=== PATIENT | female | born 1930 | race American Indian/Alaskan Native ===

== ENCOUNTER 2018-12-30 12:15 | Inpatient (IN) | payer MEDICARE, BC, OTHER ==
--- NOTE | 2018-12-30 12:55 | EDM.PDOC ---
"ED HPI GENERAL MEDICAL PROBLEM - General Chief Complaint: Respiratory Problem Stated Complaint: CAN'T STOP COUGHING/HARD TO BREATHE Time Seen by Provider: 12/30/18 12:54 Source of Information: Reports: Patient, Family, Old Records, RN, RN Notes Reviewed History Limitations: Reports: No Limitations - History of Present Illness INITIAL COMMENTS - FREE TEXT/NARRATIVE: Pt presents to ER from home with c/o progressively worsening cough and shortness of breath. Pt was seen in clinic 1 week ago and treated with Z-Ulysses, Prednisone, DuoNeb, and Tessalon Perles but did not improve. She reports extreme shortness of breath just walking across a room in her house. She has never been supplemental oxygen dependent. Denies chest pain, edema, N/V, or abdominal pain. 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, Other Medication(s) - Related Data Allergies Allergy/AdvReac Type Severity Reaction Status Date / Time cephalexin [Cephalexin] Allergy Itching Verified 07/10/18 13:12 pantoprazole Allergy Nausea and Verified 07/10/18 13:12 Vomiting pantoprazole sodium Allergy Nausea and Verified 07/10/18 13:12 [From Protonix] Vomiting terbinafine Allergy Nausea and Verified 07/10/18 13:12 Vomiting Home Meds: Home Meds Cholecalciferol (Vitamin D3) [Vitamin D3] 1 tab PO DAILY 03/29/14 [History] Alendronate [Fosamax] 10 mg PO WEEKLY 12/30/18 [History] Benzonatate 100 mg PO TID 12/30/18 [History] Diclofenac Sodium [Diclofenac Sodium ER] 100 mg PO DAILY 12/30/18 [History] Past Medical History HEENT History: Reports: Impaired Vision Other HEENT History: wears glasses Cardiovascular History: Reports: Other (See Below) Respiratory History: Reports: COPD Gastrointestinal History: Reports: GERD Musculoskeletal History: Reports: Osteoarthritis Other Musculoskeletal History: right siatica problems Social & Family History - Family History Family Medical History: Noncontributory - Tobacco Use Smoking Status *Q: Current Every Day Smoker Tobacco Use Within Last Twelve Months: Cigarettes Years of Tobacco use: 60 Packs/Tins Daily: 0.8 - Caffeine Use Caffeine Use: Reports: Coffee - Recreational Drug Use Recreational Drug Use: No - Living Situation & Occupation Occupation: Retired ED ROS GENERAL - Review of Systems Review Of Systems: ROS reveals no pertinent complaints other than HPI. ED EXAM, GENERAL - Physical Exam Exam: See Below Exam Limited By: No Limitations General Appearance: Alert, No Apparent Distress, Thin Eye Exam: Bilateral Eye: Normal Inspection Nose: Normal Inspection, Normal Mucosa, No Blood Throat/Mouth: Normal Inspection, Normal Lips, Normal Teeth, Normal Gums, Normal Oropharynx, Normal Voice, No Airway Compromise Head: Atraumatic, Normocephalic Neck: Normal Inspection, Supple, Non-Tender, Full Range of Motion Respiratory/Chest: No Respiratory Distress, No Accessory Muscle Use, Decreased Breath Sounds, Crackles, Rhonchi, Wheezing. No: Rales, Stridor Cardiovascular: Regular Rate, Rhythm, No Edema GI/Abdominal: Normal Bowel Sounds, Soft, Non-Tender, No Organomegaly, No Distention, No Abnormal Bruit, No Mass Back Exam: Normal Inspection Extremities: Normal Inspection Neurological: Alert, Oriented, CN II-XII Intact, Normal Cognition, Normal Gait, No Motor/Sensory Deficits Psychiatric: Normal Affect, Normal Mood Skin Exam: Warm, Dry, Intact, Normal Color, No Rash Course - Vital Signs Last Recorded V/S: Last Vital Signs Temp 97.5 F 12/30/18 12:28 Pulse 87 12/30/18 13:20 Resp 20 12/30/18 12:28 BP 147/77 H 12/30/18 12:28 Pulse Ox 95 12/30/18 12:28 - Orders/Labs/Meds Orders: Active Orders 24 hr Category Date Time Status Peripheral IV Care [RC] . DIRECTED Care 12/30/18 13:04 Active RT Aerosol Therapy [RC] ASDIRECTED Care 12/30/18 13:05 Active CULTURE BLOOD [BC] Stat Lab 12/30/18 13:25 Received CULTURE BLOOD [BC] Stat Lab 12/30/18 14:47 Ordered INFLUENZA A+B AG SCREEN [RM] Stat Lab 12/30/18 14:49 Received LACTIC ACID [CHEM] Stat Lab 12/30/18 14:47 Ordered Levofloxacin/Dextrose 5%-Water [Levaquin in D5W 750 MG/ Med 12/30/18 14:47 Active 150 ML] 750 mg Premix Bag 1 bag IV ONETIME Sodium Chloride 0.9% [Saline Flush] Med 12/30/18 13:03 Active 10 ml FLUSH ASDIRECTED PRN Peripheral IV Insertion Adult [OM.PC] Stat Oth 12/30/18 13:03 Ordered Medication Orders Levofloxacin/Dextrose 750 mg/ (Premix) 150 mls @ 100 mls/hr IV ONETIME ONE Stop: 12/30/18 16:16 Sodium Chloride (Saline Flush) 10 ml FLUSH ASDIRECTED PRN PRN Reason: Keep Vein Open Last Admin: 12/30/18 14:28 Dose: 10 ml Labs: Laboratory Tests 12/30/18 12/30/18 Range/Units 13:25 13:25 WBC 9.5 (5.0-10.0) 10^3/uL RBC 4.73 (4.2-5.4) 10^6/uL Hgb 14.9 (12.0-16.0) g/dL Hct 45.2 (37.0-47.0) % MCV 95.6 D (80-100) fL MCH 31.5 (27.0-34.0) pg MCHC 33.0 (33.0-35.0) g/dL Plt Count 192 (150-450) 10^3/uL Neut % (Auto) 71.1 (42.2-75.2) % Lymph % (Auto) 17.3 L (20.5-50.1) % [place] % (Auto) 7.0 (2-8) % Eos % (Auto) 4.3 H (1.0-3.0) % Baso % (Auto) 0.3 (0.0-1.0) % Sodium 135 (135-145) mmol/L Potassium 4.7 (3.6-5.0) mmol/L Chloride 97 L (101-111) mmol/L Carbon Dioxide 27.0 (21.0-31.0) mmol/L Anion Gap 15.7 BUN 21 H (7-18) mg/dL Creatinine 0.6 (0.6-1.3) mg/dL Est Cr Clr Drug Dosing 49.81 mL/min Estimated GFR (MDRD) > 60 BUN/Creatinine Ratio 35.00 Glucose 99 (74-105) mg/dL Calcium 9.3 (8.4-10.2) mg/dl Total Bilirubin 0.8 (0.2-1.0) mg/dL AST 40 (10-42) IU/L ALT 37 (10-60) IU/L Alkaline Phosphatase 52 (42-121) IU/L Total Protein 6.7 (6.7-8.2) g/dl Albumin 3.7 (3.2-5.5) g/dl Globulin 3.0 Albumin/Globulin Ratio 1.23 Meds: Medications Generic Name Dose Route Start Last Admin Trade Name Freq PRN Reason Stop Dose Admin Levofloxacin/Dextrose 750 mg/ 150 mls @ 100 mls/hr 12/30/18 14:47 Premix IV 12/30/18 16:16 ONETIME ONE Sodium Chloride 10 ml 12/30/18 13:03 12/30/18 14:28 Saline Flush FLUSH 10 ml ASDIRECTED PRN Administration Keep Vein Open Discontinued Medications Generic Name Dose Route Start Last Admin Trade Name Freq PRN Reason Stop Dose Admin Albuterol/Ipratropium 3 ml 12/30/18 13:05 12/30/18 13:20 Duoneb 3.0-0.5 Mg/3 Ml NEB 12/30/18 13:06 3 ml ONETIME ONE Administration Methylprednisolone Sodium Succinate 125 mg 12/30/18 13:05 12/30/18 14:28 Solu-Medrol IVPUSH 12/30/18 13:06 125 mg ONETIME ONE Administration - Radiology Interpretation Free Text/Narrative:: [facility] Final Radiology Report Call: [phone] assistance Online chat: [email or web address] Name: ANTONIO WU Age: 88Years F Date: 12/30/2018 SSN: -- : [id number] Study: XR CHEST 2 VIEWS FRONTAL & LAT Requesting Physician: LUZ MARIA PALMER Images: 2 Addl Studies: Provided Clinical History: Contrast: Contrast Medium: Contrast Amount: Contrast Method: Page 1 of 2 EXAM: XR Chest, 2 Views EXAM DATE/TIME: 12/30/2018 1:54 PM CLINICAL HISTORY: 88 years old, female; Signs and symptoms; Cough and shortness of breath and wheezing TECHNIQUE: Imaging protocol: XR of the chest, 2 views. COMPARISON: CR Chest 1V Frontal 07/10/2018 1:30 PM FINDINGS: Lungs: The lungs are hyperinflated, consistent with underlying small airways disease. Nonspecific bibasilar consolidation is present, consistent with atelectasis, edema, or pneumonia. Pleural space: Unremarkable. No pleural effusion. No pneumothorax. Heart/Mediastinum: Unremarkable. No cardiomegaly. Bones/joints: The thoracic spine demonstrates mild degenerative changes at multiple levels. Soft tissues: The vasculature demonstrates diffuse mild atherosclerotic calcification. IMPRESSION: 1. The lungs are hyperinflated, consistent with underlying small airways disease. 2. Nonspecific bibasilar consolidation is present, consistent with atelectasis, edema, or pneumonia. Thank you for allowing us to participate in the care of your patient. Dictated and Authenticated by: Luis Caballero DO KIMMERLY, ALICE | Final Radiology Report CONFIDENTIALITY STATEMENT This report is intended only for use by the referring physician, and only in accordance with law. If you received this in error, call [phone]. Page 2 of 2 12/30/2018 2:12 PM Central Time ([place] & [place]) Departure - Departure Time of Disposition: 14:54 (admitted to Dr. Hogan) Disposition: Admitted As Inpatient 67 Condition: Serious Clinical Impression: Acute exacerbation of chronic obstructive pulmonary disease (COPD) Pneumonia Qualifiers: Pneumonia type: due to unspecified organism Laterality: bilateral Lung location : lower lobe of lung Qualified Code(s): J18.1 - Lobar pneumonia, unspecified organism - Discharge Information *PRESCRIPTION DRUG MONITORING PROGRAM REVIEWED*: No *COPY OF PRESCRIPTION DRUG MONITORING REPORT IN PATIENT LEROY: No Forms: ED Department Discharge - My Orders Last 24 Hours: My Active Orders 12/30/18 13:03 Sodium Chloride 0.9% [Saline Flush] 10 ml FLUSH ASDIRECTED PRN Peripheral IV Insertion Adult [OM.PC] Stat 12/30/18 13:04 Peripheral IV Care [RC] . DIRECTED 12/30/18 13:05 RT Aerosol Therapy [RC] ASDIRECTED 12/30/18 13:25 CULTURE BLOOD [BC] Stat 12/30/18 14:47 CULTURE BLOOD [BC] Stat LACTIC ACID [CHEM] Stat Levofloxacin/Dextrose 5%-Water [Levaquin in D5W 750 MG/150 ML] 750 mg Premix Bag 1 bag IV ONETIME 12/30/18 14:49 INFLUENZA A+B AG SCREEN [RM] Stat - Assessment/Plan Last 24 Hours: My Active Orders 12/30/18 13:03 Sodium Chloride 0.9% [Saline Flush] 10 ml FLUSH ASDIRECTED PRN Peripheral IV Insertion Adult [OM.PC] Stat 12/30/18 13:04 Peripheral IV Care [RC] . DIRECTED 12/30/18 13:05 RT Aerosol Therapy [RC] ASDIRECTED 12/30/18 13:25 CULTURE BLOOD [BC] Stat 12/30/18 14:47 CULTURE BLOOD [BC] Stat LACTIC ACID [CHEM] Stat Levofloxacin/Dextrose 5%-Water [Levaquin in D5W 750 MG/150 ML] 750 mg Premix Bag 1 bag IV ONETIME 12/30/18 14:49 INFLUENZA A+B AG SCREEN [RM] Stat"
[2018-12-30] MEDS ORDERED: Sodium Chloride 0.9% 10 ML Syringe FLUSH PRN ×2 (13:03→16:08)
[2018-12-30] MEDS ORDERED: Albuterol/Ipratropium 3.0-0.5 MG/3 ML Neb Soln NEB ONE (13:05)
[2018-12-30] MEDS ORDERED: methylPREDNISolone Sodium Succinate 125 MG/2 ML SDV IVPUSH ONE (13:05)
[2018-12-30 14:00] LABS: ANION GAP 15.7; CHLORIDE,CL 97 mmol/L (101-111); SODIUM,NA 135 mmol/L (135-145)
[2018-12-30] MEDS ORDERED: Levofloxacin/Dextrose 5%-Water 750 MG in Premix Bag 1 BAG IV ONE (14:47)
[2018-12-30] MEDS ORDERED: Nicotine 14 MG/24 Hr Patch TRDERM SCH (16:00)
[2018-12-30] MEDS ORDERED: Albuterol 0.083% 2.5 MG/3 ML Neb Soln NEB PRN (16:10)
--- NOTE | 2018-12-30 16:44 | PCM.HP ---
H&P History of Present Illness - General Date of Service: 12/30/18 Admit Problem/Dx: Admission Diagnosis/Problem Admission Diagnosis/Problem Chronic obstructive pulmonary disease Source of Information: Patient, Family History Limitations: Reports: No Limitations - History of Present Illness Initial Comments - Free Text/Narative: 88 yo F with PMH of cigarette smoking, chronic back pain, osteoporosis who presents with SOB, cough and weakness. Symptoms started about 10 days ago. Cough is non-productive. SOB is worse with exertion. Symptoms have progressively worsened Varina very weak today and hence came to the ED No fever, no chest pain, no abd pain Smoker, for > 70 years. No formal diagnosis of COPD, no pulmonology follow up; but has an albuterol inhaler Hx of contact with great-grand children and some had colds. Symptoms gradually worsened. Was seen at clinic and given some meds last week Friday without relief of symptoms. In the ED, had some neb treatments and levaquin - Related Data Allergies/Adverse Reactions: Allergies Allergy/AdvReac Type Severity Reaction Status Date / Time cephalexin [Cephalexin] Allergy Itching Verified 12/30/18 15:39 pantoprazole Allergy Nausea and Verified 12/30/18 15:39 Vomiting pantoprazole sodium Allergy Nausea and Verified 12/30/18 15:39 [From Protonix] Vomiting terbinafine Allergy Nausea and Verified 12/30/18 15:39 Vomiting Home Medications: Home Meds Cholecalciferol (Vitamin D3) [Vitamin D3] 1,000 units PO DAILY 03/29/14 [History ] Alendronate [Fosamax] 10 mg PO WEEKLY 12/30/18 [History] Benzonatate 100 mg PO TID 12/30/18 [History] Diclofenac Sodium [Diclofenac Sodium ER] 100 mg PO DAILY 12/30/18 [History] Past Medical History HEENT History: Reports: Impaired Vision Other HEENT History: wears glasses Cardiovascular History: Reports: None Respiratory History: Reports: COPD Gastrointestinal History: Reports: GERD Genitourinary History: Reports: None 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 Musculoskeletal History: Reports: Osteoarthritis Other Musculoskeletal History: right siatica problems - Infectious Disease History Infectious Disease History: Reports: None - Past Surgical History HEENT Surgical History: Reports: Cataract Surgery Cardiovascular Surgical History: Reports: None Respiratory Surgical History: Reports: None GI Surgical History: Reports: None Female Surgical History: Reports: None Musculoskeletal Surgical History: Reports: None Social & Family History - Family History Family Medical History: Noncontributory - Tobacco Use Smoking Status *Q: Current Every Day Smoker Years of Tobacco use: 69 Packs/Tins Daily: 0.5 Second Hand Smoke Exposure: No - Caffeine Use Caffeine Use: Reports: Coffee - Recreational Drug Use Recreational Drug Use: No - Living Situation & Occupation Occupation: Retired H&P Review of Systems - Review of Systems: Review Of Systems: ROS reveals no pertinent complaints other than HPI. General: Reports: Weakness. Denies: Fever HEENT: Reports: No Symptoms Pulmonary: Reports: Shortness of Breath, Cough Cardiovascular: Reports: No Symptoms Gastrointestinal: Reports: No Symptoms Genitourinary: Reports: No Symptoms Musculoskeletal: Reports: No Symptoms Skin: Reports: No Symptoms Neurological: Reports: No Symptoms Exam - Exam Exam: See Below - Vital Signs Vital Signs: Last Vital Signs Temp 37.1 C 12/30/18 15:15 Pulse 73 12/30/18 15:15 Resp 22 H 12/30/18 15:15 BP 146/78 H 12/30/18 15:15 Pulse Ox 97 12/30/18 15:15 Weight: 47.763 kg - Exam General: Alert, Oriented HEENT: Conjunctiva Clear Neck: Supple, Trachea Midline Lungs: Clear to Auscultation Cardiovascular: Regular Rate, Regular Rhythm GI/Abdominal Exam: Normal Bowel Sounds, Soft, Non-Tender Neuro Extensive - Mental Status: Alert, Oriented x3, Normal Mood/Affect, Normal Cognition - Patient Data Lab Results Last 24 hrs: Laboratory Results - last 24 hr 12/30/18 12/30/18 12/30/18 Range/Units 13:25 13:25 15:12 WBC 9.5 (5.0-10.0) 10^3/uL RBC 4.73 (4.2-5.4) 10^6/uL Hgb 14.9 (12.0-16.0) g/dL Hct 45.2 (37.0-47.0) % MCV 95.6 D (80-100) fL MCH 31.5 (27.0-34.0) pg MCHC 33.0 (33.0-35.0) g/dL Plt Count 192 (150-450) 10^3/uL Neut % (Auto) 71.1 (42.2-75.2) % Lymph % (Auto) 17.3 L (20.5-50.1) % [place] % (Auto) 7.0 (2-8) % Eos % (Auto) 4.3 H (1.0-3.0) % Baso % (Auto) 0.3 (0.0-1.0) % Sodium 135 (135-145) mmol/L Potassium 4.7 (3.6-5.0) mmol/L Chloride 97 L (101-111) mmol/L Carbon Dioxide 27.0 (21.0-31.0) mmol/L Anion Gap 15.7 BUN 21 H (7-18) mg/dL Creatinine 0.6 (0.6-1.3) mg/dL Est Cr Clr Drug Dosing 49.81 mL/min Estimated GFR (MDRD) > 60 BUN/Creatinine Ratio 35.00 Glucose 99 (74-105) mg/dL Lactic Acid 2.4 H (0.5-2.2) mmol/L Calcium 9.3 (8.4-10.2) mg/dl Total Bilirubin 0.8 (0.2-1.0) mg/dL AST 40 (10-42) IU/L ALT 37 (10-60) IU/L Alkaline Phosphatase 52 (42-121) IU/L Total Protein 6.7 (6.7-8.2) g/dl Albumin 3.7 (3.2-5.5) g/dl Globulin 3.0 Albumin/Globulin Ratio 1.23 Result Diagrams: 12/30/18 13:25 12/30/18 13:25 Willie Results Last 24 hrs: Microbiology 12/30/18 14:49 Influenza Type A Antigen Screen - Final Nasal, Unspecified NEGATIVE INFLUENZA A VIRUS AG REFERENCE RANGE: NEGATIVE Influenza Type B Antigen Screen - Final NEGATIVE INFLUENZA B VIRUS AG REFERENCE RANGE: NEGATIVE Problem List Initiated/Reviewed/Updated: Yes Orders Last 24hrs: Active Orders 24 hr Category Date Time Status Patient Status [ADT] Routine ADT 12/30/18 16:08 Active Ambulate [RC] ASDIRECTED Care 12/30/18 16:08 Active Height and Weight [RC] DAILY Care 12/30/18 16:08 Active Oxygen Therapy [RC] PRN Care 12/30/18 16:08 Active Peripheral IV Care [RC] . DIRECTED Care 12/30/18 16:08 Active RT Aerosol Therapy [RC] ASDIRECTED Care 12/30/18 13:05 Active RT Aerosol Therapy [RC] ASDIRECTED Care 12/30/18 16:10 Active RT Chest Physiotherapy [RC] ASDIRECTED Care 12/30/18 16:12 Active RT Incentive Spirometry [RC] ASDIRECTED Care 12/30/18 16:12 Active Up With Assistance [RC] ASDIRECTED Care 12/30/18 16:08 Active VTE/DVT Education [RC] PER UNIT ROUTINE Care 12/30/18 16:08 Active Vital Signs [RC] Q4H Care 12/30/18 16:08 Active Regular Diet [DIET] Diet 12/30/18 Breakfast Active CULTURE BLOOD [BC] Stat Lab 12/30/18 13:25 Received CULTURE BLOOD [BC] Stat Lab 12/30/18 15:12 Received RESPIRATORY PANEL Routine Lab 12/30/18 16:18 Ordered Albuterol [Proventil Neb Soln] Med 12/30/18 16:10 Active 2.5 mg NEB Q6HRRT PRN Albuterol/Ipratropium [DuoNeb 3.0-0.5 MG/3 ML] Med 12/30/18 18:00 Active 3 ml NEB Q6HRRT Azithromycin [Zithromax] Med 12/30/18 16:15 Active 500 mg PO DAILY Benzonatate [Tessalon Perles] Med 12/30/18 16:17 Active 100 mg PO TID PRN Cholecalciferol (Vitamin D3) [Vitamin D3] Med 12/31/18 09:00 Active 1,000 units PO DAILY Codeine/guaiFENesin [Robitussin AC] Med 12/30/18 16:36 Ordered 5 ml PO Q6H PRN Enoxaparin [Lovenox] Med 12/30/18 16:30 Active 40 mg SUBCUT DAILY Levofloxacin/Dextrose 5%-Water [Levaquin in D5W 500 MG/ Med 12/31/18 15:00 Active 100 ML] 500 mg Premix Bag 1 bag IV Q24H Mometasone/Formoterol [Dulera 200-5 MCG] Med 12/30/18 18:00 Active 2 puff IH BIDRT Sodium Chloride 0.9% [Saline Flush] Med 12/30/18 13:03 Active 10 ml FLUSH ASDIRECTED PRN Sodium Chloride 0.9% [Saline Flush] Med 12/30/18 16:08 Active 10 ml FLUSH ASDIRECTED PRN predniSONE Med 12/30/18 16:13 Active 50 mg PO WITHBREAKFAST Peripheral IV Insertion Adult [OM.PC] Routine Oth 12/30/18 16:08 Ordered Peripheral IV Insertion Adult [OM.PC] Stat Oth 12/30/18 13:03 Ordered Saline Lock Insert [OM.PC] Routine Oth 12/30/18 16:08 Ordered Resuscitation Status Routine Resus Stat 12/30/18 16:08 Ordered Medication Orders Albuterol (Proventil Neb Soln) 2.5 mg NEB Q6HRRT PRN PRN Reason: Shortness of Breath Albuterol/Ipratropium (Duoneb 3.0-0.5 Mg/3 Ml) 3 ml NEB Q6HRRT JL Azithromycin (Zithromax) 500 mg PO DAILY JL Benzonatate (Tessalon Perles) 100 mg PO TID PRN PRN Reason: Cough Cholecalciferol (Vitamin D3) 1,000 units PO DAILY JL Enoxaparin Sodium (Lovenox) 40 mg SUBCUT DAILY JL Levofloxacin/Dextrose 500 mg/ (Premix) 100 mls @ 100 mls/hr IV Q24H JL Mometasone Furoate/Formoterol Fumar (Dulera 200-5 Mcg) 2 puff IH BIDRT JL Prednisone (Prednisone) 50 mg PO WITHBREAKFAST JL Sodium Chloride (Saline Flush) 10 ml FLUSH ASDIRECTED PRN PRN Reason: Keep Vein Open Last Admin: 12/30/18 14:28 Dose: 10 ml Sodium Chloride (Saline Flush) 10 ml FLUSH ASDIRECTED PRN PRN Reason: Keep Vein Open Assessment/Plan Comment:: #COPD exacerbation #Possible URTI #Possible pneumonia Start COPD protocol: duonebs, dulera (ICS/LABA), prednisone 50 mg daily, prn albuterol Counseled patient to quit smoking Check resp viral panel PRN tessalpenelope matthewsitussin for cough Continue IV levaquin given CXR inflitrates (cephalexin allergy) #Hx of cig smoking Counseled patient to quit smoking and she is agreeable Has nicotine patch allergy #Chronic back pain Tylenol prn I counseled patient to avoid oral NSAIDs Can also try topical NSAIDs, lidocaine patch, capsaicin cream #DVT ppx SC lovenox
[2018-12-30] MEDS: Sodium Chloride 0.9% 10 ML Syringe FLUSH PRN ×2 (16:53→20:15)
[2018-12-30] MEDS: predniSONE 20 MG Tab PO SCH (16:54)
[2018-12-30] MEDS: Enoxaparin 40 MG/0.4 ML Syringe SUBCUT SCH (16:55)
[2018-12-30] MEDS: Azithromycin 250 MG Tab PO SCH (17:03)
[2018-12-30] MEDS: Formoterol/Mometasone 200-5 MCG 8.8 GM Inhaler IH SCH (18:07)
[2018-12-30] MEDS: Albuterol/Ipratropium 3.0-0.5 MG/3 ML Neb Soln NEB SCH (18:07)
[2018-12-30] MEDS: Codeine/guaiFENesin 100-10 MG/5 ML Syrup 5 ML Cup PO PRN (20:08)
[2018-12-31] MEDS: Albuterol/Ipratropium 3.0-0.5 MG/3 ML Neb Soln NEB SCH ×4 (00:41→18:39)
[2018-12-31] MEDS: Codeine/guaiFENesin 100-10 MG/5 ML Syrup 5 ML Cup PO PRN (05:59)
[2018-12-31] MEDS: Formoterol/Mometasone 200-5 MCG 8.8 GM Inhaler IH SCH ×2 (09:29→18:40)
[2018-12-31] MEDS: Benzonatate 100 MG Cap PO PRN (09:31)
[2018-12-31] MEDS: predniSONE 20 MG Tab PO SCH (09:31)
[2018-12-31] MEDS: Azithromycin 250 MG Tab PO SCH (09:31)
[2018-12-31] MEDS: Enoxaparin 40 MG/0.4 ML Syringe SUBCUT SCH (09:31)
[2018-12-31] MEDS: Cholecalciferol (Vitamin D3) 1,000 Unit Tab PO SCH (09:31)
[2018-12-31] MEDS ORDERED: Acetaminophen 325 MG Tab PO ONE (11:34)
[2018-12-31] MEDS ORDERED: Acetaminophen 325 MG Tab PO PRN (13:31)
[2018-12-31] MEDS ORDERED: Naproxen 500 MG Tab PO ONE (15:00)
[2018-12-31] MEDS: Levofloxacin/Dextrose 5%-Water 500 MG in Premix Bag 1 BAG IV SCH (15:02)
--- NOTE | 2019-01-01 00:03 | PN ---
DATE: 12/31/2018 SUBJECTIVE: Mrs. Srinivasan is an 88-year-old female, who is a lifelong smoker. She has been smoking since the age of 19, smoking at least half a pack or more cigarettes daily. She states that she has tried to quit in the past, but has never been successful and is not motivated at this time to stop smoking, although nursing staff will provide her literature for ND quit. She was admitted yesterday when she presented with signs and symptoms of COPD exacerbation. Chest x-ray showed hyperinflated lung low with nonspecific bibasilar changes. White count was normal. Electrolytes within normal limits. Renal and hepatic function were normal. She was admitted for COPD management and is being treated with combination of bronchodilator therapy, antibiotics, and steroids. On exam, she is lying comfortably in bed. Her daughter is present. She states that she is feeling better. She has some cough, but is nonproductive. Denies any fever, chills, chest pain. Does not feel short of breath. Does complain of being weak, trouble walking. She denies any recent falls. Review of her clinical data shows she is taking adequate fluids. She is voiding and moving her bowels. She is tolerating her diet and appetite is improving. OBJECTIVE: VITAL SIGNS: Have been stable. She has remained afebrile. Blood pressure is 122/57, pulse 71, respiratory rate 20, oxygen saturation 95% on room air. She is afebrile. GENERAL: On exam, she is lying comfortably in bed. HEENT: Unremarkable. ENT is clear. CHEST: Shows clear, but diminished bilateral breath sounds without active wheezing. HEART: Regular rate and rhythm. Abdomen: Soft, flat, benign. EXTREMITIES: Show no edema. NEUROLOGICAL: She is intact. ASSESSMENT AND PLAN: Her prednisone was reduced today, and she was given a 1- time dose of 40 mg of prednisone. This was also discussed with the oncoming hospitalist, and he will continue the prednisone taper. She also had been on Levaquin and azithromycin. Azithromycin was discontinued today, and she will continue on Levaquin 500 mg daily. She is on enoxaparin for VTE prophylaxis. A referral was made to OT, PT for evaluation of her gait safety and strength. Depending on their evaluation, she may or may not be a candidate for swing bed consideration. No other changes are made today. [facility] /[id number]
[2019-01-01] MEDS: Sodium Chloride 0.9% 10 ML Syringe FLUSH PRN ×4 (00:49→17:10)
[2019-01-01] MEDS: Albuterol/Ipratropium 3.0-0.5 MG/3 ML Neb Soln NEB SCH ×4 (00:50→17:57)
[2019-01-01] MEDS ORDERED: predniSONE 20 MG Tab PO SCH (08:00)
[2019-01-01] MEDS: Codeine/guaiFENesin 100-10 MG/5 ML Syrup 5 ML Cup PO PRN ×2 (08:42→19:52)
[2019-01-01] MEDS: Enoxaparin 40 MG/0.4 ML Syringe SUBCUT SCH (08:43)
[2019-01-01] MEDS: Cholecalciferol (Vitamin D3) 1,000 Unit Tab PO SCH (08:43)
[2019-01-01] MEDS: Formoterol/Mometasone 200-5 MCG 8.8 GM Inhaler IH SCH ×2 (08:53→17:59)
[2019-01-01] MEDS: methylPREDNISolone Sodium Succinate 40 MG/1 ML SDV IVPUSH SCH ×2 (11:02→17:10)
--- NOTE | 2019-01-01 11:34 | PN ---
DATE: 01/01/2019 SUBJECTIVE: The patient is an 88-year-old lady, who was admitted with COPD exacerbation and pneumonitis. The patient this morning mentioned that she is feeling a little bit better, but she still has some paroxysms of cough and her lung sounds are still tight with still wheezing. But she denies any chest pain, orthopnea, PND, abdominal pain, or any other complaints. OBJECTIVE: Vital Signs: Blood pressure is 115/63, pulse of 78, respirations of 18, and temperature of 98.5. Heart: Regular rate and rhythm. Normal S1 and S2. No gallops. No rubs. Lungs: Have diminished breath sounds on both bases with scattered expiratory wheeze. Abdomen: Soft, nontender. Bowel sounds positive. Extremities: Negative for any pedal edema. No calf tenderness. MEDICATIONS: Reviewed. PLAN: We will continue with her IV Levaquin and I am going to put her on Solu- Medrol 40 mg IV q.8 hours, and we will continue with the rest of her management. [facility] /[id number]
[2019-01-01] MEDS: Levofloxacin/Dextrose 5%-Water 500 MG in Premix Bag 1 BAG IV SCH (14:56)
[2019-01-01] MEDS: Docusate Sodium 100 MG Cap PO SCH (17:10)
[2019-01-02] MEDS: Albuterol/Ipratropium 3.0-0.5 MG/3 ML Neb Soln NEB SCH ×4 (00:32→18:05)
[2019-01-02] MEDS: methylPREDNISolone Sodium Succinate 40 MG/1 ML SDV IVPUSH SCH ×3 (00:32→20:07)
[2019-01-02] MEDS: Formoterol/Mometasone 200-5 MCG 8.8 GM Inhaler IH SCH ×2 (07:32→18:12)
[2019-01-02] MEDS: Docusate Sodium 100 MG Cap PO SCH (08:19)
[2019-01-02] MEDS: Enoxaparin 40 MG/0.4 ML Syringe SUBCUT SCH (08:20)
[2019-01-02] MEDS: Cholecalciferol (Vitamin D3) 1,000 Unit Tab PO SCH (08:22)
[2019-01-02] MEDS: Benzonatate 100 MG Cap PO PRN ×2 (08:23→15:18)
[2019-01-02] MEDS ORDERED: Naproxen 250 MG Tab PO PRN (08:36)
[2019-01-02] MEDS: Sodium Chloride 0.9% 10 ML Syringe FLUSH PRN ×2 (08:43→15:23)
[2019-01-02] MEDS ORDERED: Patient's Own Medication 1 Each PO SCH (09:00)
--- NOTE | 2019-01-02 10:45 | PN ---
DATE: 01/02/2019 SUBJECTIVE: The patient has been doing fairly well. She is still feeling a little bit tired, but her coughing spells are a little bit looser, and she denies any worsening of shortness of breath. Denies any chest pain, orthopnea, PND, abdominal pain, or any other complaints. OBJECTIVE: Vital Signs: Blood pressure is 112/55, pulse 72, respirations 20, and saturation is 95% on room air. Heart: Regular rate and rhythm. Normal S1 and S2. No gallops. No rubs. Lungs: Diminished breath sounds in both bases, but the wheezing has improved as compared to yesterday. Abdomen: Soft and nontender. Bowel sounds are positive. EXTREMITIES: Negative for any pedal edema. No calf tenderness. MEDICATIONS: Reviewed. PLAN: We will continue with her IV antibiotics. I am going to cut down the dose of her Solu-Medrol to 40 mg every 8 hours. [facility] /[id number]
[2019-01-02] MEDS: traMADol 50 MG Tab PO PRN (14:24)
[2019-01-02] MEDS ORDERED: ALENDRONATE 70 MG PO SCH (15:00)
[2019-01-02] MEDS: Levofloxacin/Dextrose 5%-Water 500 MG in Premix Bag 1 BAG IV SCH (15:21)
[2019-01-03] MEDS: Albuterol/Ipratropium 3.0-0.5 MG/3 ML Neb Soln NEB SCH ×4 (00:29→18:26)
[2019-01-03 06:26] LABS: CHLORIDE,CL 102 mmol/L (101-111); SODIUM,NA 134 mmol/L (135-145)
[2019-01-03] MEDS: traMADol 50 MG Tab PO PRN (09:23)
[2019-01-03] MEDS: Docusate Sodium 100 MG Cap PO SCH (09:24)
[2019-01-03] MEDS: methylPREDNISolone Sodium Succinate 40 MG/1 ML SDV IVPUSH SCH (09:25)
[2019-01-03] MEDS: Enoxaparin 40 MG/0.4 ML Syringe SUBCUT SCH (09:25)
[2019-01-03] MEDS: Cholecalciferol (Vitamin D3) 1,000 Unit Tab PO SCH (09:25)
[2019-01-03] MEDS: Formoterol/Mometasone 200-5 MCG 8.8 GM Inhaler IH SCH ×2 (09:26→18:25)
--- NOTE | 2019-01-03 10:24 | PN ---
DATE: 01/03/2019 SUBJECTIVE: The patient had some headache yesterday afternoon, but it responded with tramadol. This morning, the patient is feeling much better, and she denies any headache. She also slept good last night. She still has some coughing spells, but cough is much looser. She denies any worsening of shortness of breath. Denies any chest pain, abdominal pain, or any other complaints. LABORATORY DATA: Lab workup this morning: CBC; WBC is 12.6, hemoglobin is 12.9, hematocrit is 38.7, and platelets 162. Chem-6; sodium is 134, BUN is 24, glucose is 119, and calcium is 8.3. OBJECTIVE: Vital Signs: Blood pressure is 142/58, pulse 73, respirations of 16, and temperature of 98. Heart: Regular rate and rhythm. Normal S1 and S2. No gallops. No rubs. Lungs: Diminished breath sounds on both bases, but no significant crackles and no wheezing. Abdomen: Soft and nontender. Bowel sounds positive. Extremities: Negative for any pedal edema. No calf tenderness. MEDICATIONS: Reviewed. PLAN: We will discontinue the Solu-Medrol. We will put her now on oral prednisone, and we will continue with her IV Levaquin and the rest of her management. [facility] /[id number]
[2019-01-03] MEDS: Levofloxacin/Dextrose 5%-Water 500 MG in Premix Bag 1 BAG IV SCH (14:45)
[2019-01-03] MEDS: Sodium Chloride 0.9% 10 ML Syringe FLUSH PRN (14:47)
[2019-01-04] MEDS: Albuterol/Ipratropium 3.0-0.5 MG/3 ML Neb Soln NEB SCH ×2 (01:51→07:23)
[2019-01-04] MEDS ORDERED: predniSONE 20 MG Tab PO SCH (08:00)
[2019-01-04] MEDS: Formoterol/Mometasone 200-5 MCG 8.8 GM Inhaler IH SCH (08:50)
[2019-01-04] MEDS ORDERED: Bacitracin Oint 28.35 GM Tube TOP SCH (09:00)
[2019-01-04] MEDS: Docusate Sodium 100 MG Cap PO SCH (09:03)
[2019-01-04] MEDS: traMADol 50 MG Tab PO PRN (09:03)
[2019-01-04] MEDS: Cholecalciferol (Vitamin D3) 1,000 Unit Tab PO SCH (09:05)
[2019-01-04] MEDS: Enoxaparin 40 MG/0.4 ML Syringe SUBCUT SCH (09:06)
== END 2019-01-04 11:07 | disposition swing bed (61) | DRG 190 ==
LOC: DL.ED 12:15 → DL.MS 15:13 → UNDOADMIN 15:13 → DL.MS 16:08
PROVIDERS: ADMIT Hospitalist; ATTEND Internal Medicine
DX: J44.1 Chronic obstructive pulmonary disease with (acute) exacerbation (principal); J18.1 Lobar pneumonia, unspecified organism; M81.0 Age-related osteoporosis without current pathological fracture; G89.29 Other chronic pain; M54.9 Dorsalgia, unspecified; R06.02 Shortness of breath; R05 Cough; M19.91 Primary osteoarthritis, unspecified site; Z88.1 Allergy status to other antibiotic agents; Z88.8 Allergy status to other drugs, medicaments and biological substances; Z98.49 Cataract extraction status, unspecified eye; Z79.899 Other long term (current) drug therapy; H54.7 Unspecified visual loss; J44.9 Chronic obstructive pulmonary disease, unspecified; K21.9 Gastro-esophageal reflux disease without esophagitis; M19.90 Unspecified osteoarthritis, unspecified site; M54.31 Sciatica, right side; F17.210 Nicotine dependence, cigarettes, uncomplicated; J44.0 Chronic obstructive pulmonary disease with (acute) lower respiratory infection
CPT/HCPCS: 36415; 71046; 80053; 83605; 85025; 87040 ×2; 87804 ×2; 94640; 96374; 96375; 99285; A4217; J1956; J2930; 80048; 87486; 87581; 87632; 87798; 97116-GP; 97161-GP; 97165-GO; 97530-GO; A9270-GY; J1650; J2920; J7620-GY

== ENCOUNTER 2019-01-04 10:42 | Inpatient (IN) | payer MEDICARE, BC, OTHER ==
[2019-01-04] MEDS ORDERED: Sodium Chloride 0.9% 10 ML Syringe FLUSH PRN (15:15)
[2019-01-04] MEDS ORDERED: Albuterol 0.083% 2.5 MG/3 ML Neb Soln NEB PRN (15:35)
[2019-01-04] MEDS ORDERED: Naproxen 250 MG Tab PO PRN (15:36)
[2019-01-04] MEDS: Levofloxacin/Dextrose 5%-Water 500 MG in Premix Bag 1 BAG IV SCH (15:51)
[2019-01-04] MEDS: Acetaminophen 325 MG Tab PO PRN (15:59)
[2019-01-04] MEDS ORDERED: Famotidine 20 MG Tab PO ONE (16:08)
[2019-01-04] MEDS: Formoterol/Mometasone 200-5 MCG 8.8 GM Inhaler IH SCH (17:19)
[2019-01-04] MEDS: Albuterol/Ipratropium 3.0-0.5 MG/3 ML Neb Soln NEB SCH (17:53)
[2019-01-04] MEDS: Benzonatate 100 MG Cap PO SCH (20:53)
[2019-01-04] MEDS: Bacitracin Oint 28.35 GM Tube TOP SCH (20:55)
[2019-01-05] MEDS: Albuterol/Ipratropium 3.0-0.5 MG/3 ML Neb Soln NEB SCH ×4 (00:51→17:48)
[2019-01-05] MEDS: Formoterol/Mometasone 200-5 MCG 8.8 GM Inhaler IH SCH ×2 (07:53→17:38)
[2019-01-05] MEDS: Bacitracin Oint 28.35 GM Tube TOP SCH ×3 (08:13→20:15)
[2019-01-05] MEDS: Enoxaparin 40 MG/0.4 ML Syringe SUBCUT SCH (08:13)
[2019-01-05] MEDS: Docusate Sodium 100 MG Cap PO SCH (08:13)
[2019-01-05] MEDS: Cholecalciferol (Vitamin D3) 1,000 Unit Tab PO SCH (08:14)
[2019-01-05] MEDS: Benzonatate 100 MG Cap PO SCH ×3 (08:14→20:22)
[2019-01-05] MEDS: predniSONE 20 MG Tab PO SCH (08:14)
[2019-01-05] MEDS: traMADol 50 MG Tab PO PRN (08:21)
--- NOTE | 2019-01-05 08:58 | PCM.HP ---
H&P History of Present Illness - General Date of Service: 01/04/19 Admit Problem/Dx: Admission Diagnosis/Problem Admission Diagnosis/Problem Weakness Source of Information: Patient History Limitations: Reports: No Limitations - History of Present Illness Initial Comments - Free Text/Narative: Patient is an 88-year-old female is being admitted under swing bed for continued strengthening. Has been a week after she was noted to have COPD exacerbation and was recently admitted in acute setting. Patient was having shortness of breath and cough 10 days prior to acute admission. She was started on IV Levaquin. Workup was unrevealing. No formal diagnosis of COPD. Was also on IV Solu-Medrol which was switched to oral steroids one day prior to admission. Patient reports breathing is better although still feels weak. No new concerns. - Related Data Allergies/Adverse Reactions: Allergies Allergy/AdvReac Type Severity Reaction Status Date / Time cephalexin [Cephalexin] Allergy Itching Verified 01/04/19 14:33 pantoprazole Allergy Nausea and Verified 01/04/19 14:33 Vomiting pantoprazole sodium Allergy Nausea and Verified 01/04/19 14:33 [From Protonix] Vomiting terbinafine Allergy Nausea and Verified 01/04/19 14:33 Vomiting Home Medications: Home Meds Cholecalciferol (Vitamin D3) [Vitamin D3] 1,000 units PO DAILY 03/29/14 [History ] Alendronate [Fosamax] 70 mg PO WEEKLY 12/30/18 [History] Benzonatate 100 mg PO TID 12/30/18 [History] Diclofenac Sodium [Diclofenac Sodium ER] 100 mg PO DAILY 12/30/18 [History] Past Medical History HEENT History: Reports: Impaired Vision Other HEENT History: wears glasses Cardiovascular History: Reports: None Respiratory History: Reports: COPD Gastrointestinal History: Reports: GERD Genitourinary History: Reports: None 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 Musculoskeletal History: Reports: Osteoarthritis Other Musculoskeletal History: right siatica problems - Infectious Disease History Infectious Disease History: Reports: None - Past Surgical History HEENT Surgical History: Reports: Cataract Surgery Cardiovascular Surgical History: Reports: None Respiratory Surgical History: Reports: None GI Surgical History: Reports: None Female Surgical History: Reports: None Musculoskeletal Surgical History: Reports: None Social & Family History - Family History Family Medical History: Noncontributory - Tobacco Use Smoking Status *Q: Current Every Day Smoker Years of Tobacco use: 69 Packs/Tins Daily: 0.5 Second Hand Smoke Exposure: No - Caffeine Use Caffeine Use: Reports: Coffee - Recreational Drug Use Recreational Drug Use: No - Living Situation & Occupation Occupation: Retired H&P Review of Systems - Review of Systems: Review Of Systems: See Below General: Reports: Weakness. Denies: No Symptoms HEENT: Reports: No Symptoms Pulmonary: Reports: Cough Cardiovascular: Reports: No Symptoms Gastrointestinal: Reports: No Symptoms Genitourinary: Reports: No Symptoms Skin: Reports: No Symptoms Exam - Vital Signs Vital Signs: Last Vital Signs Temp 98.3 F 01/05/19 07:57 Pulse 63 01/05/19 07:57 Resp 18 01/05/19 07:57 BP 131/74 01/05/19 07:57 Pulse Ox 98 01/05/19 07:57 Weight: 108 lb 3.2 oz - Exam General: Alert, Oriented Neck: Supple, Trachea Midline Lungs: Normal Respiratory Effort Cardiovascular: Regular Rate, Regular Rhythm GI/Abdominal Exam: Normal Bowel Sounds, Soft, Non-Tender Problem List Initiated/Reviewed/Updated: Yes Orders Last 24hrs: Active Orders 24 hr Category Date Time Status Patient Status [ADT] Routine ADT 01/04/19 11:07 Active Incentive Spirometry [RT Incentive Spirometry] [RC] Care 01/04/19 15:40 Active Q2HWA Intake and Output [RC] QSHIFT Care 01/04/19 11:08 Active RT Aerosol Therapy [RC] 01,07,13,18 Care 01/04/19 15:35 Active Up With Assistance [RC] ASDIRECTED Care 01/04/19 11:07 Active Vital Signs [RC] 08,20 Care 01/04/19 11:07 Active OT Evaluation and Treatment [CONS] Routine Cons 01/04/19 15:38 Active PT Evaluation and Treatment [CONS] Routine Cons 01/04/19 15:38 Active Regular Diet [DIET] Diet 01/04/19 Lunch Active Acetaminophen [Tylenol] Med 01/04/19 16:00 Active 650 mg PO Q6HR PRN Albuterol [Proventil Neb Soln] Med 01/04/19 15:35 Active 2.5 mg NEB Q6HRRT PRN Albuterol/Ipratropium [DuoNeb 3.0-0.5 MG/3 ML] Med 01/04/19 18:00 Active 3 ml NEB Q6HRRT Alendronate [Fosamax] Med 01/09/19 09:00 Active 70 mg PO Q7D Bacitracin [Bacitracin Oint] Med 01/04/19 21:00 Active 0 gm TOP TID Benzonatate [Tessalon Perles] Med 01/04/19 21:00 Active 100 mg PO TID Cholecalciferol (Vitamin D3) [Vitamin D3] Med 01/05/19 09:00 Active 1,000 units PO DAILY Docusate Sodium [Colace] Med 01/05/19 09:00 Active 100 mg PO DAILY Enoxaparin [Lovenox] Med 01/05/19 09:00 Active 40 mg SUBCUT DAILY Levofloxacin/Dextrose 5%-Water [Levaquin in D5W 500 MG/ Med 01/04/19 15:00 Active 100 ML] 500 mg Premix Bag 1 bag IV Q24H Mometasone/Formoterol [Dulera 200-5 MCG] Med 01/04/19 18:00 Active 0 puff IH BIDRT Naproxen [Naprosyn] Med 01/04/19 15:36 Active 250 mg PO TID PRN Non-Formulary Medication [NF Drug] Med 01/04/19 16:00 Active 0 each CHEW Q1H PRN Sodium Chloride 0.9% [Saline Flush] Med 01/04/19 15:15 Active 10 ml FLUSH ASDIRECTED PRN predniSONE Med 01/05/19 08:00 Active 40 mg PO DAILY traMADol [Ultram] Med 01/04/19 15:38 Active 50 mg PO Q8H PRN Resuscitation Status Routine Resus Stat 01/04/19 11:07 Ordered Medication Orders Acetaminophen (Tylenol) 650 mg PO Q6HR PRN PRN Reason: Pain (mild 1-3 )/fever Last Admin: 01/04/19 15:59 Dose: 650 mg Albuterol (Proventil Neb Soln) 2.5 mg NEB Q6HRRT PRN PRN Reason: Shortness of Breath Albuterol/Ipratropium (Duoneb 3.0-0.5 Mg/3 Ml) 3 ml NEB Q6HRRT [facility] Last Admin: 01/05/19 07:19 Dose: Not Given Admin: 01/05/19 00:51 Dose: 3 ml Admin: 01/04/19 17:53 Dose: 3 ml Bacitracin (Bacitracin Oint) 0 gm TOP TID [facility] Last Admin: 01/05/19 08:13 Dose: 1 applic Admin: 01/04/19 20:55 Dose: 1 applic Benzonatate (Tessalon Perles) 100 mg PO TID [facility] Last Admin: 01/05/19 08:14 Dose: 100 mg Admin: 01/04/19 20:53 Dose: 100 mg Cholecalciferol (Vitamin D3) 1,000 units PO DAILY [facility] Last Admin: 01/05/19 08:14 Dose: 1,000 units Docusate Sodium (Colace) 100 mg PO DAILY [facility] Last Admin: 01/05/19 08:13 Dose: 100 mg Enoxaparin Sodium (Lovenox) 40 mg SUBCUT DAILY [facility] Last Admin: 01/05/19 08:13 Dose: 40 mg Levofloxacin/Dextrose 500 mg/ (Premix) 100 mls @ 100 mls/hr IV Q24H [facility] Stop: 01/05/19 15:01 Last Infusion: 01/04/19 17:00 Dose: 100 mls/hr Admin: 01/04/19 15:51 Dose: 100 mls/hr Mometasone Furoate/Formoterol Fumar (Dulera 200-5 Mcg) 0 puff IH BIDRT [facility] Last Admin: 01/05/19 07:53 Dose: 2 puff Admin: 01/04/19 17:19 Dose: 2 puff Naproxen (Naprosyn) 250 mg PO TID PRN PRN Reason: Pain (moderate 4-6) Alendronate [Fosamax ] 70 Mg Tab Own Med 70 mg PO Q7D [facility] Nicotine (Polacrilex ) 2mg Gum Own Med* * 0 each CHEW Q1H PRN PRN Reason: Stop smoking aid Prednisone (Prednisone) 40 mg PO DAILY [facility]; Taper Stop: 01/16/19 07:59 Last Admin: 01/05/19 08:14 Dose: 40 mg Sodium Chloride (Saline Flush) 10 ml FLUSH ASDIRECTED PRN PRN Reason: KEEP VEIN OPEN Tramadol HCl (Ultram) 50 mg PO Q8H PRN PRN Reason: Pain (severe 7-10) Last Admin: 01/05/19 08:21 Dose: 50 mg Assessment/Plan Comment:: 1. Generalized weakness - continue to work with PT and OT for strengthening 2. recent COPD exacerbation - She will continue with IV Levaquin - She will be continued taper dose of prednisone orally - Continue with nebulizations - Continue with incentive spirometry 3. Smoker - she will do nicotine gum q2 hr prn 4. DVT prophylaxis - on lovenox
[2019-01-05] MEDS ORDERED: Famotidine 20 MG Tab PO PRN (09:44)
[2019-01-05] MEDS: Acetaminophen 325 MG Tab PO PRN (15:05)
[2019-01-05] MEDS: Levofloxacin/Dextrose 5%-Water 500 MG in Premix Bag 1 BAG IV SCH (15:06)
[2019-01-06] MEDS: Albuterol/Ipratropium 3.0-0.5 MG/3 ML Neb Soln NEB SCH ×4 (01:01→17:58)
[2019-01-06] MEDS: Bacitracin Oint 28.35 GM Tube TOP SCH ×3 (09:53→20:42)
[2019-01-06] MEDS: Cholecalciferol (Vitamin D3) 1,000 Unit Tab PO SCH (09:53)
[2019-01-06] MEDS: Formoterol/Mometasone 200-5 MCG 8.8 GM Inhaler IH SCH ×2 (09:53→17:58)
[2019-01-06] MEDS: predniSONE 20 MG Tab PO SCH (09:53)
[2019-01-06] MEDS: Docusate Sodium 100 MG Cap PO SCH (09:53)
[2019-01-06] MEDS: traMADol 50 MG Tab PO PRN (09:53)
[2019-01-06] MEDS: Benzonatate 100 MG Cap PO SCH ×3 (09:53→20:41)
[2019-01-06] MEDS: Enoxaparin 40 MG/0.4 ML Syringe SUBCUT SCH (09:54)
[2019-01-06] MEDS: Acetaminophen 325 MG Tab PO PRN (13:13)
[2019-01-06] MEDS: NICOTINE 2 MG CHEW PRN ×2 (13:21→20:41)
[2019-01-06] MEDS: GUM CHEW PRN ×2 (13:21→20:41)
[2019-01-07] MEDS: Albuterol/Ipratropium 3.0-0.5 MG/3 ML Neb Soln NEB SCH ×4 (01:59→17:08)
[2019-01-07] MEDS: predniSONE 20 MG Tab PO SCH (08:09)
[2019-01-07] MEDS: Cholecalciferol (Vitamin D3) 1,000 Unit Tab PO SCH (08:10)
[2019-01-07] MEDS: Enoxaparin 40 MG/0.4 ML Syringe SUBCUT SCH (08:10)
[2019-01-07] MEDS: Benzonatate 100 MG Cap PO SCH ×3 (08:10→20:39)
[2019-01-07] MEDS: Docusate Sodium 100 MG Cap PO SCH (08:10)
[2019-01-07] MEDS: Bacitracin Oint 28.35 GM Tube TOP SCH ×3 (08:11→20:39)
[2019-01-07] MEDS: Formoterol/Mometasone 200-5 MCG 8.8 GM Inhaler IH SCH ×2 (08:11→17:09)
[2019-01-07] MEDS: traMADol 50 MG Tab PO PRN (08:53)
[2019-01-07] MEDS: Acetaminophen 325 MG Tab PO PRN (14:11)
[2019-01-08] MEDS: Albuterol/Ipratropium 3.0-0.5 MG/3 ML Neb Soln NEB SCH ×3 (00:38→13:17)
[2019-01-08] MEDS: Formoterol/Mometasone 200-5 MCG 8.8 GM Inhaler IH SCH (08:41)
[2019-01-08] MEDS: Benzonatate 100 MG Cap PO SCH ×2 (08:42→14:49)
[2019-01-08] MEDS: Docusate Sodium 100 MG Cap PO SCH (08:42)
[2019-01-08] MEDS: traMADol 50 MG Tab PO PRN (08:42)
[2019-01-08] MEDS: Bacitracin Oint 28.35 GM Tube TOP SCH ×2 (08:42→14:48)
[2019-01-08] MEDS: predniSONE 20 MG Tab PO SCH (08:43)
[2019-01-08] MEDS: Enoxaparin 40 MG/0.4 ML Syringe SUBCUT SCH (08:43)
[2019-01-08] MEDS: Cholecalciferol (Vitamin D3) 1,000 Unit Tab PO SCH (08:45)
[2019-01-08] MEDS: Acetaminophen 325 MG Tab PO PRN (10:18)
[2019-01-08] MEDS: NICOTINE 2 MG CHEW PRN (10:19)
[2019-01-08] MEDS: GUM CHEW PRN (10:19)
--- NOTE | 2019-01-08 10:23 | PCM.DCSUM1 ---
Discharge Summary - Hospital Course Free Text/Narrative:: had acute care hospitalization for SOb was treated for copd admitted to swing bed for weakness 1. Generalized weakness - improved with PT and OT for strengthening 2. recent COPD exacerbation - finished treatment with Levaquin - She will be continued taper dose of prednisone orally - Continue with copd treatment with symbicort, albuterol PRN 3. Smoker - she will do nicotine gum q2 hr prn Diagnosis: Stroke: No - Discharge Data Discharge Date: 01/08/19 Discharge Disposition: Home, Self-Care 01 Condition: Good - Patient Summary/Data Consults: Consultations 01/04/19 15:38 OT Evaluation and Treatment [CONS] Routine PT Evaluation and Treatment [CONS] Routine - Patient Instructions Diet: Usual Diet as Tolerated Activity: As Tolerated - Discharge Plan *PRESCRIPTION DRUG MONITORING PROGRAM REVIEWED*: Not Applicable *COPY OF PRESCRIPTION DRUG MONITORING REPORT IN PATIENT LEROY: Not Applicable Prescriptions/Med Rec: predniSONE 10 mg PO DAILY #7 tablet traMADol [Ultram] 50 mg PO Q8H PRN #12 tablet PRN Reason: Pain (Severe 7-10) Home Medications: Home Meds Cholecalciferol (Vitamin D3) [Vitamin D3] 1,000 units PO DAILY 03/29/14 [History ] Alendronate [Fosamax] 70 mg PO WEEKLY 12/30/18 [History] Benzonatate 100 mg PO TID 12/30/18 [History] Albuterol [Proventil Neb Soln] 2.5 mg NEB Q6HRRT PRN neb 01/08/19 [Rx] Famotidine [Pepcid] 20 mg PO DAILY PRN tablet 01/08/19 [Rx] Mometasone/Formoterol [Dulera 200-5 MCG] 0 puff IH BIDRT inhaler 01/08/19 [Rx] Naproxen [Naprosyn] 250 mg PO TID PRN tablet 01/08/19 [Rx] Non-Formulary Medication [NF Drug] 0 each CHEW Q1H PRN each 01/08/19 [Rx] predniSONE 10 mg PO DAILY #7 tablet 01/08/19 [Rx] traMADol [Ultram] 50 mg PO Q8H PRN #12 tablet 01/08/19 [Rx] - Discharge Summary/Plan Comment DC Time >30 min.: No - General Info Date of Service: 01/08/19 - Review of Systems General: Denies: Fever, Weakness Pulmonary: Denies: Shortness of Breath Cardiovascular: Denies: Chest Pain Gastrointestinal: Denies: Abdominal Pain Genitourinary: Denies: Dysuria - Patient Data Vitals - Most Recent: Last Vital Signs Temp 36.6 C 01/08/19 07:55 Pulse 70 01/08/19 07:55 Resp 18 01/08/19 07:55 BP 136/69 01/08/19 07:55 Pulse Ox 99 01/08/19 07:55 Weight - Most Recent: 48.444 kg I&O - Last 24 hours: Intake & Output 01/07/19 01/08/19 01/08/19 22:59 06:59 14:59 Intake Total 440 200 200 Balance 440 200 200 Med Orders - Current: Current Medications Acetaminophen (Tylenol) 650 mg PO Q6HR PRN PRN Reason: Pain (mild 1-3 )/fever Last Admin: 01/08/19 10:18 Dose: 650 mg Albuterol (Proventil Neb Soln) 2.5 mg NEB Q6HRRT PRN PRN Reason: Shortness of Breath Albuterol/Ipratropium (Duoneb 3.0-0.5 Mg/3 Ml) 3 ml NEB Q6HRRT [facility] Last Admin: 01/08/19 07:28 Dose: 3 ml Bacitracin (Bacitracin Oint) 0 gm TOP TID [facility] Last Admin: 01/08/19 08:42 Dose: 1 applic Benzonatate (Tessalon Perles) 100 mg PO TID [facility] Last Admin: 01/08/19 08:42 Dose: 100 mg Cholecalciferol (Vitamin D3) 1,000 units PO DAILY [facility] Last Admin: 01/08/19 08:45 Dose: 1,000 units Docusate Sodium (Colace) 100 mg PO DAILY [facility] Last Admin: 01/08/19 08:42 Dose: 100 mg Enoxaparin Sodium (Lovenox) 40 mg SUBCUT DAILY [facility] Last Admin: 01/08/19 08:43 Dose: 40 mg Famotidine (Pepcid) 20 mg PO DAILY PRN PRN Reason: Other Mometasone Furoate/Formoterol Fumar (Dulera 200-5 Mcg) 0 puff IH BIDRT [facility] Last Admin: 01/08/19 08:41 Dose: 2 puff Naproxen (Naprosyn) 250 mg PO TID PRN PRN Reason: Pain (moderate 4-6) Alendronate [Fosamax ] 70 Mg Tab Own Med 70 mg PO Q7D [facility] Nicotine (Polacrilex ) 2mg Gum Own Med* * 0 each CHEW Q1H PRN PRN Reason: Stop smoking aid Last Admin: 01/08/19 10:19 Dose: 1 each Prednisone (Prednisone) 30 mg PO DAILY [facility]; Taper Stop: 01/16/19 07:59 Last Admin: 01/08/19 08:43 Dose: 30 mg Tramadol HCl (Ultram) 50 mg PO Q8H PRN PRN Reason: Pain (severe 7-10) Last Admin: 01/08/19 08:42 Dose: 50 mg Discontinued Medications Famotidine (Pepcid) 20 mg PO ONETIME ONE Stop: 01/04/19 16:09 Last Admin: 01/04/19 17:18 Dose: 20 mg Levofloxacin/Dextrose 500 mg/ (Premix) 100 mls @ 100 mls/hr IV Q24H [facility] Stop: 01/05/19 15:01 Last Admin: 01/05/19 15:06 Dose: 100 mls/hr Sodium Chloride (Saline Flush) 10 ml FLUSH ASDIRECTED PRN PRN Reason: KEEP VEIN OPEN Last Admin: 01/05/19 15:06 Dose: 10 ml - Exam General: Reports: Alert, Oriented Neck: Reports: Supple Lungs: Reports: Clear to Auscultation, Normal Respiratory Effort. Denies: Rhonchi, Wheezing Cardiovascular: Reports: Regular Rate, Regular Rhythm GI/Abdominal Exam: Normal Bowel Sounds, Soft, Non-Tender Extremities: No Pedal Edema Skin: Reports: Warm, Dry, Intact Neurological: Reports: No New Focal Deficit Psy/Mental Status: Reports: Alert, Normal Affect, Normal Mood
[2019-01-09] MEDS ORDERED: ALENDRONATE 70 MG PO SCH (09:00)
== END 2019-01-08 14:50 | disposition home or self-care (01) | DRG 192 ==
LOC: DL.MS 11:07
PROVIDERS: ADMIT Internal Medicine; ATTEND Internal Medicine
DX: J44.1 Chronic obstructive pulmonary disease with (acute) exacerbation (principal); R53.1 Weakness; F17.210 Nicotine dependence, cigarettes, uncomplicated; K21.9 Gastro-esophageal reflux disease without esophagitis; M19.90 Unspecified osteoarthritis, unspecified site; Z79.899 Other long term (current) drug therapy; Z88.1 Allergy status to other antibiotic agents; Z88.8 Allergy status to other drugs, medicaments and biological substances; Z98.49 Cataract extraction status, unspecified eye
CPT/HCPCS: 94010; 94640; 97110-GO; 97110-GP; 97116-GP; 97162-GP; 97165-GO; 97530-GO; 97535-GO; A4217; A9270-GY; J1650; J1956; J7620-GY

== ENCOUNTER 2021-07-23 15:24 | Emergency (ER) | payer MEDICARE, BC, OTHER ==
--- NOTE | 2021-07-23 16:11 | EDM.PDOC ---
<Michael Hurley - Last Filed: 07/23/21 17:12> ED HPI GENERAL MEDICAL PROBLEM - General Chief Complaint: Respiratory Problem Stated Complaint: COVID LIKE SYMPTOMS Time Seen by Provider: 07/23/21 15:50 - Related Data Allergies Allergy/AdvReac Type Severity Reaction Status Date / Time cephalexin [Cephalexin] Allergy Itching Verified 01/04/19 14:33 pantoprazole Allergy Nausea and Verified 01/04/19 14:33 Vomiting pantoprazole sodium Allergy Nausea and Verified 01/04/19 14:33 [From Protonix] Vomiting terbinafine Allergy Nausea and Verified 01/04/19 14:33 Vomiting Home Meds: Home Meds Cholecalciferol (Vitamin D3) [Vitamin D3] 1,000 units PO DAILY 03/29/14 [History] Alendronate [Fosamax] 70 mg PO WEEKLY 12/30/18 [History] Benzonatate 100 mg PO TID 12/30/18 [History] Albuterol [Proventil Neb Soln] 2.5 mg NEB Q6HRRT PRN neb 01/08/19 [Rx] Famotidine [Pepcid] 20 mg PO DAILY PRN tablet 01/08/19 [Rx] Mometasone/Formoterol [Dulera 200-5 MCG] 0 puff IH BIDRT inhaler 01/08/19 [Rx] Naproxen [Naprosyn] 250 mg PO TID PRN tablet 01/08/19 [Rx] Non-Formulary Medication [NF Drug] 0 each CHEW Q1H PRN each 01/08/19 [Rx] predniSONE 10 mg PO DAILY #7 tablet 01/08/19 [Rx] traMADol [Ultram] 50 mg PO Q8H PRN #12 tablet 01/08/19 [Rx] Course - Radiology Interpretation Free Text/Narrative:: [facility] [place] [facility] Final Radiology Report Call: [phone] assistance Online chat: [email or web address] Name: ANTONIO WU Age: 89Years F Date: 07/23/2021 SSN: -- : [id number] Study: CR CHEST 1V FRONTAL Requesting Physician: Samira Beavers Images: 1 Addl Studies: Provided Clinical History: Cough, shortness of breath Contrast: Contrast Medium: Contrast Amount: Contrast Method: CONFIDENTIALITY STATEMENT This report is intended only for use by the referring physician, and only in accordance with law. If you received this in error, call [phone]. Page 1 of 1 PROCEDURE INFORMATION: Exam: XR Chest Exam date and time: 07/23/2021 4:06 PM Age: 89 years old Clinical indication: Other: Cough, shortness of breath TECHNIQUE: Imaging protocol: XR of the chest. Views: 1 view. COMPARISON: No relevant prior studies available. FINDINGS: Lungs: Bilateral hyperinflation is present. Atelectatic changes noted within both lung bases. Pleural spaces: Unremarkable. No pleural effusion. No pneumothorax. Heart/Mediastinum: Unremarkable. No cardiomegaly. Vasculature: Tortuosity of the thoracic aorta. Bones/joints: Unremarkable. IMPRESSION: 1. Bilateral hyperinflation is present. 2. Atelectatic changes noted within both lung bases. Thank you for allowing us to participate in the care of your patient. Dictated and Authenticated by: Luis Caballero DO 07/23/2021 4:29 PM Central Time ([place] & [place]) - Re-Assessments/Exams Free Text/Narrative Re-Assessment/Exam: 07/23/21 16:41 I personally performed or re-performed the physical examination and medical decision making. I have verified all student documentation or findings, including history, physical exam and/or medical decision making. Departure - Departure Disposition: Home, Self-Care 01 Clinical Impression: COVID-19 - Discharge Information Instructions: COVID-19 Frequently Asked Questions Forms: ED Department Discharge Additional Instructions: Take three pills of Paxlovid in the morning and at night for five days. Take all three pills at the same time. Quarantine for 10 days and return promptly to the ER if you start to have shortness of breath or worsening of symptoms. <Samira Beavers - Last Filed: 07/23/21 17:28> ED HPI GENERAL MEDICAL PROBLEM - General Source of Information: Reports: Patient History Limitations: Reports: No Limitations - History of Present Illness INITIAL COMMENTS - FREE TEXT/NARRATIVE: 89 y/o F with history of COPD and smoking presented with one day duration of body aches, fatigue, and cough. She has mild shortness fo breath without chest pain. Her symptoms gradually increased from yesterday and her children forced her to seek medical care today. Sick contacts include her grandchildren who have had mild colds. She has been vaccinated for COVID. 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 Musculoskeletal History: Reports: Osteoarthritis Other Musculoskeletal History: right siatica problems - Infectious Disease History Infectious Disease History: Reports: None - Past Surgical History HEENT Surgical History: Reports: Cataract Surgery Cardiovascular Surgical History: Reports: None Respiratory Surgical History: Reports: None GI Surgical History: Reports: None Female Surgical History: Reports: None Musculoskeletal Surgical History: Reports: None Social & Family History - Family History Family Medical History: No Pertinent Family History - Caffeine Use Caffeine Use: Reports: Coffee - Living Situation & Occupation Occupation: Retired ED ROS GENERAL - Review of Systems Review Of Systems: See Below Constitutional: Reports: Chills, Weakness, Fatigue Respiratory: Reports: Shortness of Breath, Cough, Sputum. Denies: Wheezing, Pleuritic Chest Pain, Hemoptysis Cardiovascular: Denies: Chest Pain GI/Abdominal: Reports: Abdominal Pain. Denies: Constipation, Diarrhea : Denies: Discharge, Dysuria, Flank Pain Skin: Reports: No Symptoms ED EXAM, GENERAL - Physical Exam Exam: See Below Exam Limited By: No Limitations General Appearance: Alert, Mild Distress Respiratory/Chest: Other (Decreased breath sounds of left lower lobe ). No: Crackles, Rhonchi, Wheezing Cardiovascular: Regular Rate, Rhythm, No Edema, No Murmur GI/Abdominal: Normal Bowel Sounds, No Distention. No: Distended, Guarding Extremities: Normal Inspection, Non-Tender, No Pedal Edema, Normal Capillary Refill Course - Vital Signs Last Recorded V/S: Last Vital Signs Temp 96.8 F L 07/23/21 16:21 Pulse 62 07/23/21 16:21 Resp 16 07/23/21 16:21 BP 110/72 07/23/21 16:21 Pulse Ox 93 L 07/23/21 16:21 - Orders/Labs/Meds Labs: Laboratory Tests 07/23/21 Range/Units 15:38 Influenza Type A RNA Negative (NEGATIVE) RSV RNA (INAAT) Negative (NEGATIVE) Influenza Type B RNA Negative (NEGATIVE) SARS-CoV-2 RNA ([place]) Positive H (NEGATIVE) Meds: Medications Discontinued Medications Generic Name Dose Route Start Last Admin Trade Name Freq PRN Reason Stop Dose Admin Dexamethasone 6 mg 07/23/21 16:59 07/23/21 17:16 Dexamethasone 4 Mg/Ml Sdv IVPUSH 07/23/21 17:00 Not Given ONETIME ONE Dexamethasone 6 mg 07/23/21 17:11 Dexamethasone 6 Mg Tablet PO 07/23/21 17:12 ONETIME ONE Remdesivir 200 mg/ Sodium 250 mls @ 250 mls/hr 07/23/21 16:58 07/23/21 17:16 Chloride IV 07/23/21 17:57 Not Given ONETIME ONE Departure - Departure Time of Disposition: 17:17 Condition: Fair - Discharge Information *PRESCRIPTION DRUG MONITORING PROGRAM REVIEWED*: Not Applicable *COPY OF PRESCRIPTION DRUG MONITORING REPORT IN PATIENT LEROY: Not Applicable Sepsis Event Note (ED) - Focused Exam Vital Signs: Vital Signs Temp Pulse Resp BP Pulse Ox 07/23/21 16:21 96.8 F L 62 16 110/72 93 L
--- NOTE | 2021-07-23 16:29 | CR ---
PROCEDURE INFORMATION: Exam: XR Chest Exam date and time: 07/23/2021 4:06 PM Age: 89 years old Clinical indication: Other: Cough, shortness of breath TECHNIQUE: Imaging protocol: XR of the chest. Views: 1 view. COMPARISON: No relevant prior studies available. FINDINGS: Lungs: Bilateral hyperinflation is present. Atelectatic changes noted within both lung bases. Pleural spaces: Unremarkable. No pleural effusion. No pneumothorax. Heart/Mediastinum: Unremarkable. No cardiomegaly. Vasculature: Tortuosity of the thoracic aorta. Bones/joints: Unremarkable. IMPRESSION: 1. Bilateral hyperinflation is present. 2. Atelectatic changes noted within both lung bases.
[2021-07-23 16:32] LABS: RESPIRATORY SYNCYTIAL VIR NAA NEGATIVE (NEGATIVE)
[2021-07-23 16:36] LABS: CORONAVIRUS COVID-19 NAA POSITIVE (NEGATIVE)
[2021-07-23] MEDS ORDERED: REMDESIVIR 200 MG in Sodium Chloride 0.9% 250 ML IV ONE (16:58)
[2021-07-23] MEDS ORDERED: Dexamethasone 4 MG/ML SDV IVPUSH ONE (16:59)
[2021-07-23] MEDS ORDERED: Dexamethasone 6 MG TABLET PO ONE (17:11)
== END 2021-07-23 17:42 | disposition home or self-care (01) ==
LOC: DL.ED 15:24
DX: U07.1 COVID-19 (principal); J44.9 Chronic obstructive pulmonary disease, unspecified
CPT/HCPCS: 0241U; 71045; 99283; J8540

== ENCOUNTER 2021-11-07 20:28 | Emergency (ER) | payer MEDICARE, BC, OTHER ==
[2021-11-07] MEDS ORDERED: Sodium Chloride 0.9% 10 ML Syringe FLUSH PRN (20:41)
[2021-11-07 21:24] LABS: ANION GAP 14.9 mEq/L (7-13); CHLORIDE,CL 100 mmol/L (98-107); SODIUM,NA 137 mmol/L (136-145)
[2021-11-07] MEDS ORDERED: Sodium Chloride 0.9% 1,000 ML IV SCH (21:30)
[2021-11-07] MEDS ORDERED: Aspirin 81 MG Tab.Chew PO ONE (22:49)
[2021-11-07] MEDS ORDERED: Aspirin 81 MG Tab.Chew ONE (22:50)
== END 2021-11-07 23:55 ==
LOC: DL.ED 20:28
DX: T68.XXXA Hypothermia, initial encounter (principal); S09.90XA Unspecified injury of head, initial encounter; R77.8 Other specified abnormalities of plasma proteins; J44.9 Chronic obstructive pulmonary disease, unspecified; K21.9 Gastro-esophageal reflux disease without esophagitis; M19.90 Unspecified osteoarthritis, unspecified site; Z88.1 Allergy status to other antibiotic agents; Z88.8 Allergy status to other drugs, medicaments and biological substances; Z87.891 Personal history of nicotine dependence; W00.0XXA Fall on same level due to ice and snow, initial encounter
CPT/HCPCS: 36415; 51702; 70450; 71045; 72125; 80053; 81001; 82550; 83605; 83880; 84484; 85025; 85610; 93005; 99285; A9270; J3490; J7030